=== PATIENT | male | born 1935 | race Caucasian/White ===

== ENCOUNTER 2017-03-25 12:49 | Inpatient (IN) | payer MEDICARE ==
--- NOTE | 2017-03-25 13:33 | CT ---
CT BRAIN NONCONTRAST: HISTORY: An 81-year-old male, status post head trauma from fall. FINDINGS: There is no midline shift or any other mass effect. There is no evidence of acute intracranial hemor rhage, large cortical infarct, obstructive hydrocephalus, or extraaxial fluid collection. The calvar ium is intact. There is diffuse parenchymal volume loss. There are low attenuation areas in the whi te matter. These are nonspecific, but in a patient of this age, they are probably chronic ischemic w veronika matter changes due to microvascular atherosclerosis. IMPRESSION: 1) No acute intracranial findings. 2) Involutional changes and chronic ischemic white matter changes. jn [] POS: [facility]
[2017-03-25] MEDS ORDERED: Adacel (T-DAP) 0.5 ML VIAL ONE (13:35)
--- NOTE | 2017-03-25 13:46 | RAD ---
FRONTAL RADIOGRAPH PELVIS: Date: 03-25-17 Comparison: None. History: Trauma. Pain. FINDINGS: Rotation to the left limits detailed assessment. No widening of the sacroiliac joints or pubic symphy sis. There are sclerotic lesions seen throughout the osseous structures as seen on prior CT examinati on performed 07-15-16 suggesting widespread osseous metastatic disease. There is an obliquely oriented comminuted intratrochanteric fracture involving the proximal left femu r. Dedicated left hip imaging advised. IMPRESSION: 1. Intertrochanteric fracture of the proximal left femur. Dedicated left hip imaging advised. 2. Evidence of widespread osseous metastatic disease. POS: [facility]
[2017-03-25 14:02] LABS: #Lymphocytes 1.1 thou/uL (1.20-3.40); #Monocytes 0.3 thou/uL (0.11-0.59); %Basophils 0.4 % (0.0-1.0); %Eosinophils 0.6 % (0.0-10.0); %Monocytes 6.1 % (0.0-10.0); %Neutrophils 72.9 % (42.0-75.0); Hemoglobin 12.5 g/dL (14.0-18.0); Mean Corpuscular HGB CONC 31.7 g/dL (32.0-36.0); Mean Corpuscular Hemoglobin 31.8 pg (27.0-31.0); Mean Platelet Volume 7.1 fL (7.4-10.4); Platelet Count 220 thou/uL (130-400); RBC Distribution Width 14.1 % (11.5-14.5); Red Blood Cell (RBC) Count 3.92 mill/uL (4.70-6.10); White Blood Cell (WBC) Count 5.5 thou/uL (4.8-10.8)
--- NOTE | 2017-03-25 14:21 | RAD ---
RADIOGRAPH LEFT HIP 2 VIEWS: Date: 03/25/17 Time: 1327 hours HISTORY: 81-year-old male status post acute left hip traumatic injury from fall. FINDINGS: There is linear lucency involving intertrochanteric region, associated with mild overlap of osseous s tructures, involving the lesser trochanter. There is a very large number of osteoblastic lesions thro ughout the visualized portions of the pelvis, which includes the left ilium, left ischium, and bilate ral pubis; and also the left intertrochanteric region. Femoral head contour is maintained. There is m ild to moderate central-medial left hip joint space narrowing. Minimal subcapital osteophytes. IMPRESSION: 1. Suspicious for mildly displaced, possibly impacted left intertrochanteric fracture. Recommend non contrast CT for confirmation. 2. Diffuse osteoblastic skeletal metastatic disease, probably from prostate cancer. POS: [facility]
--- NOTE | 2017-03-25 14:23 | RAD ---
PORTABLE UPRIGHT FRONTAL CHEST RADIOGRAPH: Date: 03/25/17 COMPARISON: 01/13/15. HISTORY: Fracture, preoperative patient. FINDINGS: No pneumothorax, pleural fluid, lobar consolidation, or alveolar edema. Stable prominence of the card iac silhouette noted. There is a single lead transvenous pacing device inserted via left-sided approa ch, extensive sclerotic change involving the imaged osseous structures, evidence of widespread osseou s metastatic disease. IMPRESSION: No evidence for acute cardiopulmonary disease. Diffuse osseous blastic metastatic disease. POS: [facility]
[2017-03-25 14:25] LABS: Anion Gap 16 mmol/L (10-20); BUN (Urea Nitrogen) 12 mg/dL (8.4-25.7); Calc. Creatinine Clearance 0 mL/min (70-130); Calcium 8.9 mg/dL (7.8-10.44); Carbon Dioxide 25 mmol/L (23-31); Chloride 102 mmol/L (98-107); Estimated GFR-MDRD Greater than 90; Glucose 103 mg/dL (83-110); Potassium 4.5 mmol/L (3.5-5.1); Sodium 138 mmol/L (136-145)
[2017-03-25] MEDS ORDERED: Ondansetron HCl/PF 4 MG/2 ML Vial IVP PRN (15:32)
[2017-03-25] MEDS ORDERED: Ondansetron ODT 4 MG TAB PO PRN (15:32)
[2017-03-25] MEDS ORDERED: Dextrose 50% Abboject 50 ML SYRINGE SLOW IVP PRN (15:32)
[2017-03-25] MEDS ORDERED: Dextrose 5% in Water 1,000 ML IV PRN (15:32)
[2017-03-25] MEDS ORDERED: traMADol HCl 50 MG TAB PO PRN (15:34)
[2017-03-25] MEDS ORDERED: Lorazepam 0.5 MG TAB PO PRN (15:36)
[2017-03-25] MEDS ORDERED: HYDROcodone/Acetaminophen 5/325 mg Tablet PO PRN (15:39)
[2017-03-25] MEDS ORDERED: Ibuprofen 600 MG TAB PO PRN (15:41)
[2017-03-25] MEDS ORDERED: traMADol HCl 50 MG TAB PO SCH (15:45)
[2017-03-25] MEDS ORDERED: Acetaminophen 500 MG TAB PO SCH (15:45)
--- NOTE | 2017-03-25 17:56 | HP ---
DATE OF ADMISSION: 03/25/2017 REQUESTING PHYSICIAN: Dr. Freedman ADMITTING PHYSICIAN: Dr. Mello Kerr. CONSULTING PHYSICIAN: Tom Llanes M.D., Orthopedics. HISTORY OF PRESENT ILLNESS: The patient is an 81-year-old male with a history of dementia and metastatic prostate CA and now bone CA. He has been under the care of hospice service for the last 3-4 months. All treatments and medications other than pain medication and Ativan have been stopped at this point. Apparently this morning, the patient was ambulating to the outside to smoke a cigarette. His had just turned to go back in the house to retrieve an item. She reports she heard a loud noise and ran immediately back to the patient and that is when she found him on the ground. He complained of left hip pain. He was transported to the Emergency Department. A left hip fracture was identified on workup. Trauma was consulted for admission and management. Dr. Tom Llanes, Orthopedics, has been consulted and is seeing the patient simultaneously in the Emergency Department with Trauma Services. PAST MEDICAL HISTORY: Dementia, benign prostatic hypertrophy, high blood pressure, DVT, PE, atrial fibrillation, metastatic prostate CA. PAST SURGICAL HISTORY: Appendectomy, left arm orthopedic surgery. SOCIAL HISTORY: Patient lives at home with his . Reports alcoholic drinks every day, less than 5 drinks per day. Currently uses tobacco, smokes cigarettes. Denies drug use. ALLERGIES: No known drug allergies. CURRENT MEDICATIONS: Flomax one 0.4 mg tablet once daily, Ativan unknown dosage q.6h. as needed, hydrocodone unknown dosage, morphine unknown dosage. LABORATORY DATA: CBC: WBC 5.5, RBC 3.92, hemoglobin 12.5, hematocrit 39.3, platelets 220. Chemistry: Sodium 138, potassium 4.5, chloride 102, carbon dioxide 25, BUN 12, creatinine 0.69, glucose 103. Diagnostic imaging left hip x -ray, intertrochanteric fracture of the left proximal femur. REVIEW OF SYSTEMS: The patient with dementia and unable to complete review of systems. PHYSICAL EXAMINATION: CONSTITUTIONAL: Chronically ill appearing, cachectic, frail male. Nontoxic appearing. No acute distress. HEENT: Laceration of left parietal area. No drainage noted from ears, nose. NECK: No JVD noted. RESPIRATORY: Even, unlabored. No respiratory distress. Breath sounds clear. CARDIOVASCULAR: Regular rate and rhythm. Heart sounds normal. ABDOMEN: Nontender, nondistended, soft. Back appears normal. No trauma noted. EXTREMITIES: Upper extremities: No trauma noted to upper extremities. Cap refill brisk. Neurovascularly intact. Lower extremities: The patient denies pain to palpation. Cap refill brisk. Neurovascularly intact. SKIN: Warm and dry. No rashes noted. No trauma noted. ASSESSMENT AND PLAN: 1. An 81-year-old male status post ground level fall. 2. Left hip fracture. 3. History of metastatic prostate cancer with bone metastasis. 4. Currently on hospice care. PLAN: 1. Admit patient to hospital. 2. Consult to Dr. Llanes, Orthopedics. I spoke with Dr. Llanes at bedside. Plan is to take patient tomorrow for surgical fixation of left hip fracture. 3. Patient may have regular diet, then n.p.o. after midnight. 4. Start IV fluids at midnight. 5. PT, OT evaluation after procedure. 6. Hydrocodone for pain. 7. Pepcid for PUD prophylaxis. 8. SCDs for DVT prophylaxis. Resume chemical DVT prophylaxis when cleared by Orthopedics. The patient was seen and examined with Dr. Kerr, attending trauma surgeon, who agrees with the assessment and plan. [facility]
[2017-03-25] MEDS: Sodium Chloride 0.9% 1,000 ML IV SCH (18:06)
[2017-03-25] MEDS ORDERED: CEFAZOLIN/Water 2 GM/20 ML SYRINGE SLOW IVP SCH (18:15)
[2017-03-25] MEDS: Famotidine 20 MG TAB PO SCH (20:23)
[2017-03-25] MEDS: Famotidine/PF 20 mg/2ml Vial SLOW IVP SCH (21:27)
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
--- NOTE | 2017-03-25 23:48 | PRG ---
DATE OF SERVICE: 03/25/2017 SUBJECTIVE: This is an 81-year-old male with a history of dementia and metastatic prostate CA and no w with bone CA. Under the care of hospice service for the last 3 to 4 months. Apparently, he did boyer ve a fall today when he was outside smoking a cigarette. OBJECTIVE: At this time, the patient's vital signs are stable, as documented. Physical exam is unch anged from earlier today. ASSESSMENT AND PLAN: He is n.p.o. after midnight for surgical fixation of the left hip in the a.m. Dr. Llanes has spoken with this patient. Continue with care documented in the history of present illness at this time.
[2017-03-26] MEDS: HYDROcodone/Acetaminophen 5/325 mg Tablet PO PRN ×2 (02:19→20:47)
[2017-03-26 05:53] LABS: #Lymphocytes 1.6 thou/uL (1.20-3.40); #Monocytes 0.6 thou/uL (0.11-0.59); #Neutrophils 5.4 thou/uL (1.40-6.50); %Basophils 0.3 % (0.0-1.0); %Eosinophils 0.6 % (0.0-10.0); %Lymphocytes 21.2 % (21.0-51.0); %Monocytes 7.8 % (0.0-10.0); %Neutrophils 70.2 % (42.0-75.0); Hemoglobin 10.8 g/dL (14.0-18.0); Mean Corpuscular Hemoglobin 30.8 pg (27.0-31.0); Mean Corpuscular Volume 99.3 fl (80.0-94.0); Mean Platelet Volume 7.5 fL (7.4-10.4); Platelet Count 194 thou/uL (130-400); Red Blood Cell (RBC) Count 3.49 mill/uL (4.70-6.10); White Blood Cell (WBC) Count 7.7 thou/uL (4.8-10.8)
[2017-03-26 05:57] LABS: Anion Gap 14 mmol/L (10-20); BUN (Urea Nitrogen) 12 mg/dL (8.4-25.7); Calc. Creatinine Clearance 0 mL/min (70-130); Calcium 8.7 mg/dL (7.8-10.44); Carbon Dioxide 24 mmol/L (23-31); Chloride 104 mmol/L (98-107); Estimated GFR-MDRD Greater than 90; Glucose 97 mg/dL (83-110); Magnesium 2.1 mg/dL (1.6-2.6); Phosphorus 3.5 mg/dL (2.3-4.7); Sodium 138 mmol/L (136-145)
[2017-03-26] MEDS ORDERED: CEFAZOLIN/Water 2 GM/20 ML SYRINGE ONE (06:53)
[2017-03-26] MEDS: Sodium Chloride 0.9% 1,000 ML IV SCH ×2 (07:25→18:54)
[2017-03-26] MEDS ORDERED: Fentanyl 100 MCG/2 ML VIAL ONE (08:27)
[2017-03-26] MEDS ORDERED: Morphine PF 1 MG/ML SYR ONE (08:42)
[2017-03-26] MEDS ORDERED: FLU VACC TS2017-18 (>65YR) 0.5 ML SYRINGE IM ONE (09:00)
[2017-03-26] MEDS ORDERED: Prevnar 13-Val Conj/PF 0.5 ML SYRINGE IM ONE (09:00)
[2017-03-26] MEDS ORDERED: CEFAZOLIN/Water 2 GM/20 ML SYRINGE SLOW IVP SCH (09:30)
[2017-03-26] MEDS ORDERED: Ondansetron HCl/PF 4 MG/2 ML Vial IVP PRN (10:26)
[2017-03-26] MEDS ORDERED: Promethazine HCl 25 MG/ML VIAL SLOW IVP PRN (10:26)
[2017-03-26] MEDS ORDERED: Promethazine HCl 25 MG/ML VIAL IM PRN (10:26)
--- NOTE | 2017-03-26 10:35 | OP ---
DATE OF OPERATION: 03/26/2017 OPERATION: Left femur intramedullary nail. PREOPERATIVE DIAGNOSIS: Left intertrochanteric femur fracture. POSTOPERATIVE DIAGNOSIS: Left intertrochanteric femur fracture. COMPLICATIONS: None. ESTIMATED BLOOD LOSS: 200 mL SURGEON: Tom Llanes M.D. STEWARD/STEWARDESS THIRD CLASS: Kash Hester PA-C. IMPLANTS: Synthes trochanteric femoral nail size 11 x 440 mm COMPLICATIONS: None. INDICATIONS FOR PROCEDURE: Mr. Dalton is an 81-year-old male who fell. He sustained a fracture of t he intertrochanteric femur. He has metastatic prostate cancer as well. He has been indicated for a long intramedullary nail to restore alignment and promote healing as well as early mobilization. We will also protect the entire femur given he has metastatic cancer. DESCRIPTION OF PROCEDURE: Mr. Dalton was identified in the preoperative holding area. His correct e xtremity was marked. He was carried to the operating room. He was positioned supine. General anest hesia was induced. A multidisciplinary timeout was performed. The left lower extremity was prepped and draped in sterile fashion. We began the procedure with an incision proximal to the trochanter. We dissected down through subcut aneous tissues to the tip of the trochanter. A guidewire was inserted. We then overreamed the K-wir e. We placed a ball-tip guidewire from proximal to distal. At this point, we overreamed the guidewi re to a size 12 mm reamer. We then impacted the 11 mm femoral nail which was 440 mm in length. Next , we placed a helical blade in the center-center position of the femoral head. We followed this by p lacement of a distal cross-lock screw using perfect stebbins technique. We took x-ray images throughou t the procedure and guided all our instrumentation. We thoroughly irrigated the wounds. We then bird sed with 0 Vicryl suture, 2-0 Vicryl suture, and then lisa for the skin. A sterile dressing was a pplied. At this point, the patient was taken to recovery room in good condition.
--- NOTE | 2017-03-26 11:05 | RAD ---
INTRAOPERATIVE FLUOROSCOPY: History: Intertrochanteric fracture. Comparison: None. FINDINGS: Intraoperative fluoroscopy is provided for the orthopedic surgeon. There is evidence of internal fixa tion hardware comprised of a gamma nail and intramedullary misael. There is a single distal interlocking screw. IMPRESSION: Intraprocedure fluoroscopy as above. POS: [facility]
[2017-03-26] MEDS: Famotidine 20 MG TAB PO SCH ×2 (11:43→20:48)
[2017-03-26] MEDS: Famotidine/PF 20 mg/2ml Vial SLOW IVP SCH ×2 (11:44→20:48)
[2017-03-26] MEDS ORDERED: PROPOFOL 200 MG/20 ML VIAL ONE (14:58)
[2017-03-26] MEDS ORDERED: PHENYLEPHRINE-NS 100 MCG/ML 10 ML SYRINGE ONE (14:58)
--- NOTE | 2017-03-26 17:03 | PRG ---
DATE OF SERVICE: 03/26/2017 SUBJECTIVE: The patient is seen immediately and will return to the surgical floor status post fixation of left hip fracture. He reports pain is well controlled. There is no family at best side. OBJECTIVE: GENERAL: Elderly, cachectic male lying in bed. No acute distress. HEENT: Atraumatic, normocephalic. PULMONARY: Respirations even and unlabored. LUNGS: Bilateral breath sounds clear. CARDIOVASCULAR: Heart sounds normal. Regular rate and rhythm. ABDOMEN: Soft, nontender, nondistended. EXTREMITIES: Dressing to left hip and lateral thigh clean, dry, and intact. Cap refill brisk. Neurovascular intact. ASSESSMENT: 1. Status post ground-level fall. 2. Left intertrochanteric femur fracture. 3. Status post left femur intramedullary nail. PLAN: 1. Antibiotics per Orthopedic Surgery service. 2. Oral analgesia with A[place]. 3. PT and OT evaluation. 4. Lovenox for DVT prophylaxis. 5. Regular diet. Patient was reviewed and discussed with Dr. Kerr, attending trauma surgeon, who agrees with the assessment and plan. [facility]
--- NOTE | 2017-03-27 00:51 | PRG ---
DATE OF SERVICE: 03/26/2017 SUBJECTIVE: This is an 81-year-old male with history of dementia and metastatic prostate CA and now with bone CA. Under the care of hospice service for the last 3 to 4 months. Apparently, he did have a fall while smoking a cigarette. He is post op day 0 from his ORIF of the left hip. OBJECTIVE: At this time, patient's vital signs are stable, as documented. Physical exam is unchange d. ASSESSMENT AND PLAN: Continue care as documented in the progress note. Continue to monitor. Discha rge disposition pending.
[2017-03-27] MEDS: HYDROcodone/Acetaminophen 5/325 mg Tablet PO PRN ×3 (03:08→17:08)
[2017-03-27] MEDS: Sodium Chloride 0.9% 1,000 ML IV SCH ×2 (03:08→17:19)
[2017-03-27] MEDS: Famotidine 20 MG TAB PO SCH ×2 (08:48→20:37)
[2017-03-27] MEDS: Tamsulosin HCl 0.4 MG CAP PO SCH (08:51)
[2017-03-27] MEDS ORDERED: Sodium Chloride 0.9% 250 ML IV SCH (09:45)
[2017-03-27] MEDS ORDERED: Sodium Chloride 0.9% 500 ML IV SCH (17:30)
[2017-03-27 18:06] LABS: #Lymphocytes 1.4 thou/uL (1.20-3.40); #Monocytes 0.9 thou/uL (0.11-0.59); #Neutrophils 6.9 thou/uL (1.40-6.50); %Basophils 0.2 % (0.0-1.0); %Eosinophils 0.2 % (0.0-10.0); %Lymphocytes 15.4 % (21.0-51.0); %Monocytes 9.7 % (0.0-10.0); %Neutrophils 74.5 % (42.0-75.0); Hemoglobin 9.3 g/dL (14.0-18.0); Mean Corpuscular HGB CONC 32.3 g/dL (32.0-36.0); Mean Corpuscular Hemoglobin 32.4 pg (27.0-31.0); Mean Platelet Volume 7.9 fL (7.4-10.4); Platelet Count 149 thou/uL (130-400); RBC Distribution Width 14.2 % (11.5-14.5); Red Blood Cell (RBC) Count 2.87 mill/uL (4.70-6.10); White Blood Cell (WBC) Count 9.3 thou/uL (4.8-10.8)
[2017-03-27 18:33] LABS: Anion Gap 15 mmol/L (10-20); BUN (Urea Nitrogen) 14 mg/dL (8.4-25.7); Calc. Creatinine Clearance 0 mL/min (70-130); Calcium 8.3 mg/dL (7.8-10.44); Carbon Dioxide 21 mmol/L (23-31); Chloride 105 mmol/L (98-107); Estimated GFR-MDRD Greater than 90; Glucose 115 mg/dL (83-110); Magnesium 1.9 mg/dL (1.6-2.6); Phosphorus 2.6 mg/dL (2.3-4.7); Potassium 3.9 mmol/L (3.5-5.1); Sodium 137 mmol/L (136-145)
--- NOTE | 2017-03-27 18:37 | PRG ---
DATE OF SERVICE: 03/27/2017 SUBJECTIVE: The patient is postoperative day #1 status post open reduction internal fixation left hip fracture. He was seen this morning lying in bed. He reports pain is well controlled. There is no family at bedside. Urine output was minimal overnight. OBJECTIVE: GENERAL: Elderly, cachectic man lying in bed. No acute distress. HEENT: Atraumatic, normocephalic. PULMONARY: Respirations even and unlabored. LUNGS: Bilateral breath sounds clear. CARDIOVASCULAR: Heart sounds normal, regular rate and rhythm. ABDOMEN: Soft, nontender, nondistended. EXTREMITIES: Dressing to left hip and lateral thigh are clean, dry and intact. Cap refill brisk all extremities. NEUROLOGIC: GCS 14, patient is confused. ASSESSMENT: 1. Status post ground level fall. 2. Left intertrochanteric femur fracture. 3. Status post left femur intramedullary nail. 4. Patient previously on hospice care for metastatic prostate cancer. PLAN: 1. Continue current care on floor. 2. A 250 mL bolus this a.m. was given. We will continue to monitor heart rate and blood pressure as well as urine output. 3. Continue PT, OT evaluation and treatment. 4. Lovenox for DVT prophylaxis. 5. Regular diet. Patient was reviewed and discussed with Dr. Kerr, attending trauma surgeon, who agrees with the assessment and plan. [facility]
[2017-03-27] MEDS ORDERED: Magnesium 2 GM/NS 0.9% 100 ML 2 GM in Premix Bag 1 BAG IVPB SCH (20:00)
[2017-03-27] MEDS ORDERED: Potassium Phosphate 30 MMOL in Sodium Chloride 0.9% 500 ML IVPB SCH (20:00)
[2017-03-27] MEDS ORDERED: Enoxaparin Sodium 40 MG/0.4 ML SYRINGE SC SCH (21:00)
--- NOTE | 2017-03-28 01:02 | PRG ---
DATE OF SERVICE: 03/27/2017 SUBJECTIVE: The patient was noted to have atrial fibrillation with RVR today, rate of 137, labs with drawn. EKG was taken. Electrolytes were replaced. The patient's case was discussed with Dr. Kerr. The patient has been asymptomatic. OBJECTIVE: VITAL SIGNS: Heart rate into 120s to 130s. Blood pressure 110/70. Respiratory rate is 15, unlabore d, clear lung kyle, 99% on room air. ASSESSMENT: Replace electrolytes as needed. The patient will remain on the surgical floor. At this time, continue to monitor. Continue care plan. We will reassess in the morning. The patient was d iscussed with Dr. Kerr via phone and agreed with the above plan.
[2017-03-28] MEDS: HYDROcodone/Acetaminophen 5/325 mg Tablet PO PRN ×2 (06:44→17:10)
[2017-03-28] MEDS: Sodium Chloride 0.9% 1,000 ML IV SCH (06:47)
[2017-03-28 07:16] LABS: #Lymphocytes 1.6 thou/uL (1.20-3.40); #Monocytes 0.5 thou/uL (0.11-0.59); #Neutrophils 4.6 thou/uL (1.40-6.50); %Basophils 0.3 % (0.0-1.0); %Eosinophils 0.3 % (0.0-10.0); %Lymphocytes 23.5 % (21.0-51.0); %Monocytes 7.8 % (0.0-10.0); %Neutrophils 68.1 % (42.0-75.0); Hemoglobin 7.7 g/dL (14.0-18.0); Mean Corpuscular HGB CONC 32.7 g/dL (32.0-36.0); Mean Corpuscular Hemoglobin 32.6 pg (27.0-31.0); Mean Corpuscular Volume 99.6 fl (80.0-94.0); Platelet Count 122 thou/uL (130-400); RBC Distribution Width 14.3 % (11.5-14.5); Red Blood Cell (RBC) Count 2.35 mill/uL (4.70-6.10); White Blood Cell (WBC) Count 6.7 thou/uL (4.8-10.8)
[2017-03-28 07:37] LABS: Anion Gap 12 mmol/L (10-20); BUN (Urea Nitrogen) 11 mg/dL (8.4-25.7); Calc. Creatinine Clearance 0 mL/min (70-130); Carbon Dioxide 24 mmol/L (23-31); Chloride 108 mmol/L (98-107); Estimated GFR-MDRD Greater than 90; Glucose 96 mg/dL (83-110); Magnesium 2.1 mg/dL (1.6-2.6); Phosphorus 3.6 mg/dL (2.3-4.7); Potassium 4.1 mmol/L (3.5-5.1); Sodium 140 mmol/L (136-145)
[2017-03-28] MEDS: Famotidine 20 MG TAB PO SCH (08:32)
[2017-03-28] MEDS: Tamsulosin HCl 0.4 MG CAP PO SCH (08:33)
[2017-03-28] MEDS ORDERED: Docusate 100 MG CAP PO SCH (09:00)
[2017-03-28] MEDS ORDERED: Senokot 8.6 MG TAB PO SCH (09:00)
[2017-03-28] MEDS ORDERED: Lorazepam 1 MG TAB PO PRN (13:55)
[2017-03-28 15:48] VITALS: BP 124/69; TEMP 97.6
--- NOTE | 2017-03-29 02:18 | DIS ---
DATE OF ADMISSION: 03/25/2017 DATE OF DISCHARGE: 03/28/2017 ADMITTING PHYSICIAN: Dr. Mello Kerr. DISCHARGING PHYSICIAN: Dr. Mello Kerr. CONSULTING PHYSICIAN: Dr. Tom Llanes, Orthopedics. REASON FOR HOSPITALIZATION: Ground level fall with left hip pain. HOSPITAL DIAGNOSIS: Left intertrochanteric femur fracture. PROCEDURES PERFORMED: Left femur intramedullary nail. DATE OF OPERATION: 03/26 SURGEON: Dr. Tom Llanes. CONDITION ON DISCHARGE: Poor. DISPOSITION: The patient is discharged back to his previous living situation, which is at home with home hospice. The patient has metastatic prostate cancer and was previously on hospice service for the past 3-4 months. BRIEF HISTORY OF HOSPITALIZATION: An 81-year-old male with a history of dementia and metastatic prostate and now bone cancer, who has been under the care of the hospice service for the last 3-4 months. All treatments and medications other than pain medication and Ativan had been stopped. The morning of admission, the patient was ambulating outside to smoke a cigarette when his heard him a fall to the ground. She immediately came to his side and found him on the ground, complaining of left hip pain. He was transported to [facility]. A left hip fracture was identified. He was admitted to the hospital by Trauma Services. Dr. Tom Llanes was consulted and took the patient to the OR for fixation of the fracture. He was then managed on the surgical floor. On postoperative day #1, he had an episode in the evening of atrial fibrillation with a rapid ventricular response. He was given a fluid bolus and electrolytes were corrected. Heart rate then returned to normal. He had no chest pain, no shortness of breath and no other symptoms. He reported pain is well controlled. He was on a regular diet; however, the patient has very poor intake and did so also prior to coming to the hospital this time. He was seen by physical therapy, who worked with the patient for mobilization and also taught the family range of motion and mobilization exercises. Case management was consulted for discharge planning. Arrangements were made for him to return to his previous hospice situation at home. DME was obtained and [facility] set up equipment at home for patient. He was cleared by Orthopedics to discharge home. He was discharged to home on 03/28/2017, back to the care of hospice. He is to follow up with Dr. Llanes. There is no need for him to follow up with Trauma services. He was discharged with orders to resume hospice care at home. The patient was seen and examined with Dr. Kerr who agrees with the assessment and plan. [facility]
--- NOTE | 2017-04-06 16:25 | EKG ---
Test Reason : STAT Blood Pressure : / mmHG Vent. Rate : 137 BPM Atrial Rate : 241 BPM P-R Int : 000 ms QRS Dur : 096 ms QT Int : 330 ms P-R-T Axes : 000 -36 268 degrees QTc Int : 498 ms Atrial fibrillation with rapid ventricular response Left axis deviation Septal infarct (cited on or before 13-JAN-2015) Abnormal ECG When compared with ECG of 27-MAR-2017 18:47, (Unconfirmed) Questionable change in initial forces of Anteroseptal leads Confirmed by Taryn RIBEIRO ([id number]) on 04/06/2017 4:25:41 PM Referred By: Confirmed By:Taryn RIBEIRO
--- NOTE | 2017-04-06 16:25 | EKG ---
Test Reason : Blood Pressure : / mmHG Vent. Rate : 136 BPM Atrial Rate : 166 BPM P-R Int : 000 ms QRS Dur : 082 ms QT Int : 362 ms P-R-T Axes : 000 -38 239 degrees QTc Int : 544 ms Atrial fibrillation with rapid ventricular response with premature ventricular or aberrantly conducte d complexes Left axis deviation Anteroseptal infarct (cited on or before 13-JAN-2015) Abnormal ECG When compared with ECG of 25-MAR-2017 13:48, (Unconfirmed) Vent. rate has increased BY 57 BPM Questionable change in initial forces of Anteroseptal leads ST now depressed in Anterior leads Nonspecific T wave abnormality, improved in Anterior leads Nonspecific T wave abnormality now evident in Lateral leads Confirmed by Taryn RIBEIRO ([id number]) on 04/06/2017 4:25:34 PM Referred By: JACQUELINE Confirmed By:Taryn RIBEIRO
--- NOTE | 2017-04-12 17:34 | EKG ---
Test Reason : Blood Pressure : / mmHG Vent. Rate : 079 BPM Atrial Rate : 073 BPM P-R Int : 000 ms QRS Dur : 108 ms QT Int : 434 ms P-R-T Axes : 000 -42 -26 degrees QTc Int : 497 ms Atrial fibrillation with premature ventricular or aberrantly conducted complexes Left axis deviation Septal infarct , age undetermined Abnormal ECG Confirmed by JORGE DUENAS ([id number]), editor managing newspaper CAMERON PAREKH ([id number]) on 04/12/2017 5:33:51 PM Referred By: Confirmed By:JORGE DUENAS
== END 2017-03-28 18:56 | disposition hospice, home (50) | DRG 481 ==
LOC: ERS 12:49 → SURG A 14:12
PROVIDERS: ADMIT Surgery; ATTEND Surgery
PROC: 0HQ0XZZ Repair Scalp Skin, External Approach (ICD-10-PCS; 2017-03-25)
PROC: 0QS706Z Reposition Left Upper Femur with Intramedullary Internal Fixation Device, Open Approach (ICD-10-PCS; principal; 2017-03-26)
DX: S72.142A Displaced intertrochanteric fracture of left femur, initial encounter for closed fracture (principal); C79.51 Secondary malignant neoplasm of bone; F03.90 Unspecified dementia, unspecified severity, without behavioral disturbance, psychotic disturbance, mood disturbance, and anxiety; I48.91 Unspecified atrial fibrillation; S01.01XA Laceration without foreign body of scalp, initial encounter; F17.210 Nicotine dependence, cigarettes, uncomplicated; Z85.46 Personal history of malignant neoplasm of prostate; W18.30XA Fall on same level, unspecified, initial encounter
CPT/HCPCS: 12001; 36415; 70450; 71045; 72170; 76001; 80048; 83735; 84100; 85025; 90471; 90715; 93005; 93010; 94640; C1713; C1769; G0390; G8978-GP-CM; G8979-GP-CL; G8987-GO-CM; G8988-GO-CM; G8989-GO-CM; J0131; J1650; J2274; J2704; J3010; J3475; J7050; J7620